=== PATIENT | male | born 1990 | race Two or more races ===

== ENCOUNTER 2017-08-16 02:00 | Emergency (ER) | payer MEDICAID, OTHER ==
[~2017-08-16] VITALS: Ht 180.3 cm; Wt 86.2 kg
[2017-08-16 02:29] VITALS: BP 145/96
== END 2017-08-16 05:47 | disposition home or self-care (01) ==
LOC: ER 02:00
DX: S90.465A Insect bite (nonvenomous), left lesser toe(s), initial encounter (principal); W57.XXXA Bitten or stung by nonvenomous insect and other nonvenomous arthropods, initial encounter; Y93.89 Activity, other specified; Y92.89 Other specified places as the place of occurrence of the external cause; Y99.8 Other external cause status

== ENCOUNTER 2019-02-23 05:47 | Emergency (ER) | payer MEDICAID ==
[~2019-02-23] VITALS: Ht 180.3 cm; Wt 86.2 kg
[2019-02-23 06:47] VITALS: BP 121/79
[2019-02-23 07:16] LABS: Urine Bacteria NONE SEEN /hpf (None Seen); Urine Blood Negative /uL (Negative); Urine Specific Gravity 1.016 (1.001-1.035); Urine WBC 2 /hpf (0 - 3)
[2019-02-23] MEDS ORDERED: cefTRIAXone SODIUM 250 MG VL IM ONE (07:30)
[2019-02-23] MEDS ORDERED: AZITHROMYCIN 250 MG TAB PO ONE (07:30)
== END 2019-02-23 07:48 | disposition home or self-care (01) ==
LOC: ER 05:47
DX: A64 Unspecified sexually transmitted disease (principal); F41.9 Anxiety disorder, unspecified; F15.10 Other stimulant abuse, uncomplicated
CPT/HCPCS: 81001; 96372; 99283; J0696

== ENCOUNTER 2021-04-08 20:56 | Emergency (ER) | payer MEDICAID ==
[~2021-04-08] VITALS: Ht 180.3 cm; Wt 90.7 kg
[2021-04-08] MEDS ORDERED: IBUP800T27 PO (23:15)
[2021-04-08] MEDS ORDERED: ACET-1304 PO (23:15)
[2021-04-08 23:19] VITALS: BP 121/78
== END 2021-04-09 03:31 | disposition home or self-care (01) ==
LOC: ER 21:01
DX: S62.334A Displaced fracture of neck of fourth metacarpal bone, right hand, initial encounter for closed fracture (principal); Y93.89 Activity, other specified; Y92.89 Other specified places as the place of occurrence of the external cause; Y99.8 Other external cause status
CPT/HCPCS: 29125; 73130

== ENCOUNTER 2021-08-21 22:51 | Emergency (ER) | payer MEDICAID ==
[~2021-08-21] VITALS: Ht 180.3 cm; Wt 86.2 kg
[~2021-08-21 22:51] MED LIST: ACET-1304 PO; IBUP800T27 PO
[2021-08-22 00:18] LABS: Basophils # (auto) 0 10 ^3/uL (0-0.2); Basophils % (auto) 0.4 % (0.0-2.0); Eosinophils # (auto) 0.2 10 ^3/uL (0-0.8); Eosinophils % (auto) 1.8 % (0.0-7.0); Hematocrit 40.9 % (41.0-53.0); Hemoglobin 14.5 g/dL (13.5-17.5); Lymphocytes # (auto) 2.9 10 ^3/uL (0.4-5.4); Lymphocytes % (auto) 31.4 % (10.0-50.0); Mean Corpuscular Hemoglobin 30.3 pg (28.0-32.0); Mean Corpuscular Hgb Conc. 35.5 g/dL (32.0-36.0); Mean Corpuscular Volume 85.6 fL (80.0-100.0); Monocytes # (auto) 0.5 10 ^3/uL (0-1.3); Monocytes % (auto) 5.8 % (0.0-12.0); Neutrophils # (auto) 5.7 10 ^3/uL (1.6-8.6); Neutrophils % (auto) 60.6 % (37.0-80.0); Nucleated Red Blood Cells % 0.1 %; Red Blood Cells 4.78 10^6/uL (4.5-5.90); Red Cell Distribution Width 13.7 % (11.8-14.3); White Blood Cell 9.3 10^3/uL (4.4-10.8)
[2021-08-22 00:43] LABS: Albumin 3.6 g/dL (3.4-5.0); Calcium 8.4 mg/dL (8.5-10.1); Potassium 3.7 mmol/L (3.5-5.1)
[2021-08-22 00:45] LABS: BUN/Creatinine Ratio 14.1
[2021-08-22 00:47] LABS: Bilirubin, Total 0.5 mg/dL (0.2-1.0); Total Protein 6.9 g/dL (6.4-8.2)
[2021-08-22] MEDS ORDERED: IBUPROFEN 800 MG TAB PO ONE (02:45)
[2021-08-22] MEDS ORDERED: ceFAZolin IM 1GM/2.5ML STERILE WATER IM ONE (03:45)
[2021-08-22] MEDS ORDERED: TETANUS-DIPTH-ACEL PERTUSSIS 0.5ML SYR Tdap IM ONE (03:45)
[2021-08-22] MEDS ORDERED: CEPH-509 PO (04:18)
[2021-08-22] MEDS ORDERED: SULF400T11 PO (04:18)
[2021-08-22] MEDS ORDERED: SULFAMETHOX W/TRIMETH(800/160MG) DS TAB PO ONE (04:30)
[2021-08-22] MEDS ORDERED: CEPHALEXIN 250 MG CAP PO ONE (04:30)
[2021-08-22 04:50] VITALS: BP 125/81
== END 2021-08-22 04:53 | disposition home or self-care (01) ==
LOC: ER 22:51
DX: R22.32 Localized swelling, mass and lump, left upper limb (principal); F15.10 Other stimulant abuse, uncomplicated
CPT/HCPCS: 36415; 73140; 80053; 83605; 85025; 87040; 90471; 90715; 99284; J0690

== ENCOUNTER 2022-08-27 10:21 | Emergency (ER) | payer MEDICAID ==
[~2022-08-27] VITALS: Ht 180.3 cm; Wt 91.0 kg
[~2022-08-27 10:21] MED LIST changes: +CEPH-509 PO; +IBUP-1456 PO; -IBUP800T27 PO; +SULF400T11 PO
[2022-08-27 11:31] VITALS: BP 147/87
[2022-08-27 11:53] LABS: Urine Amorphous Crystal FEW /hpf (None Seen); Urine Bacteria NONE SEEN /hpf (None Seen); Urine Blood Negative /uL (Negative); Urine Mucus FEW (None Seen); Urine Specific Gravity 1.015 (1.001-1.035); Urine WBC 1 /hpf (0 - 3)
[2022-08-27] MEDS ORDERED: HYDROcodone-ACET 5/325MG TAB PO ONE (12:30)
== END 2022-08-27 12:37 | disposition home or self-care (01) ==
LOC: ER 10:21
DX: S46.912A Strain of unspecified muscle, fascia and tendon at shoulder and upper arm level, left arm, initial encounter (principal); W18.31XA Fall on same level due to stepping on an object, initial encounter; Y93.89 Activity, other specified; Y92.89 Other specified places as the place of occurrence of the external cause; Y99.8 Other external cause status
CPT/HCPCS: 73030; 81001

== ENCOUNTER 2022-11-12 16:51 | Emergency (ER) | payer MEDICAID ==
[~2022-11-12] VITALS: Ht 180.3 cm; Wt 83.4 kg
[2022-11-12 17:35] LABS: Urine Bacteria NONE SEEN /hpf (None Seen); Urine Blood Negative /uL (Negative); Urine Clarity Clear (Clear); Urine Color Yellow (Yellow); Urine Protein, UAD Negative (Negative); Urine Specific Gravity 1.021 (1.001-1.035); Urine Urobilinogen Normal (Negative); Urine WBC 4 /hpf (0 - 3); Urine pH 6.5 (5.0-8.0)
[2022-11-12] MEDS ORDERED: AZITHROMYCIN 250 MG TAB PO ONE (18:30)
[2022-11-12] MEDS ORDERED: cefTRIAXone SODIUM 250 MG VL IM ONE (18:30)
[2022-11-12] MEDS ORDERED: LIDOCAINE 1% HCL (LOCAL ANESTH.) INJ 20ML MDV ONE (18:46)
[2022-11-12 19:21] VITALS: BP 124/86; PULSE 110; RESP 18; TEMP 98.5; O2SAT 96
[2022-11-14 07:06] LABS: RPR Non Reactive (Non Reactive)
== END 2022-11-12 19:24 | disposition home or self-care (01) ==
LOC: ER 16:51
DX: R36.9 Urethral discharge, unspecified (principal); Z79.899 Other long term (current) drug therapy; Z79.1 Long term (current) use of non-steroidal anti-inflammatories (NSAID)
CPT/HCPCS: 81001; 86592; 87491; 87591; 96372; 99283; J0696; J2001

== ENCOUNTER 2023-05-20 15:25 | Emergency (ER) | payer MEDICAID ==
[~2023-05-20] VITALS: Ht 180.3 cm; Wt 84.1 kg
[2023-05-20 15:43] VITALS: BP 138/91; PULSE 107; RESP 18; TEMP 98.4; O2SAT 97
[2023-05-20] MEDS ORDERED: CIPR0.3S67 OP (16:06)
== END 2023-05-20 16:21 | disposition home or self-care (01) ==
LOC: ER 15:25
DX: H10.31 Unspecified acute conjunctivitis, right eye (principal); Z79.1 Long term (current) use of non-steroidal anti-inflammatories (NSAID); Z79.2 Long term (current) use of antibiotics; Z79.899 Other long term (current) drug therapy

== ENCOUNTER 2023-06-01 15:59 | Emergency (ER) | payer MEDICAID ==
[~2023-06-01] VITALS: Ht 180.3 cm; Wt 81.5 kg
[~2023-06-01 15:59] MED LIST changes: +CIPR0.3S67 OP
[2023-06-01 16:47] LABS: Basophils # (auto) 0 10 ^3/uL (0-0.2); Basophils % (auto) 0.4 % (0.0-2.0); Eosinophils # (auto) 0.1 10 ^3/uL (0-0.8); Eosinophils % (auto) 1.4 % (0.0-7.0); Hemoglobin 15.9 g/dL (13.5-17.5); Lymphocytes % (auto) 42.3 % (10.0-50.0); Mean Corpuscular Hemoglobin 29.7 pg (28.0-32.0); Mean Corpuscular Hgb Conc. 33.8 g/dL (32.0-36.0); Mean Corpuscular Volume 87.7 fL (80.0-100.0); Monocytes # (auto) 0.5 10 ^3/uL (0-1.3); Monocytes % (auto) 7.5 % (0.0-12.0); Neutrophils # (auto) 3.4 10 ^3/uL (1.6-8.6); Neutrophils % (auto) 48.4 % (37.0-80.0); Nucleated Red Blood Cells % 0.2 %; Red Blood Cells 5.36 10^6/uL (4.5-5.90); Red Cell Distribution Width 13.5 % (11.8-14.3); White Blood Cell 7.1 10^3/uL (4.4-10.8)
[2023-06-01 17:02] LABS: Alanine Aminotransferase 20 U/L (7-40); Albumin 4.5 g/dL (3.2-4.8); Alkaline Phosphatase 27 U/L (46-116); Anion Gap 2 (5-15); Aspartate Aminotransferase 12 U/L (13-40); BUN/Creatinine Ratio 12.6 (10.0-20.0); Blood Urea Nitrogen 11 mg/dL (9-23); Calcium 10.2 mg/dL (8.7-10.4); Carbon Dioxide 32 mmol/L (20-30); Chloride 106 mmol/L (98-107); Glucose 93 mg/dL (74-106); Magnesium 1.9 mg/dL (1.6-2.6); Potassium 4.1 mmol/L (3.5-5.1); Sodium 140 mmol/L (136-145)
[2023-06-01 17:03] LABS: Bilirubin, Total 2.5 mg/dL (0.2-1.0); Total Protein 7.1 g/dL (5.7-8.2)
[2023-06-01 20:03] LABS: Amphetamine Screen, Urine Pos (NEGATIVE); Barbiturate Scree,Urine Neg (NEGATIVE); Benzodiazephine Screen, Urine Neg (NEGATIVE); Cocaine Screen, Urine Neg (NEGATIVE); Opiate Scree,Urine Neg (NEGATIVE); Phencyclidine Screen, Urine Neg (NEGATIVE)
[2023-06-01 20:04] LABS: Cannabinoid Screen, Urine Pos (NEGATIVE)
[2023-06-01 20:10] LABS: Urine Amorphous Crystal FEW /hpf (None Seen); Urine Bacteria NONE SEEN /hpf (None Seen); Urine Blood Negative /uL (Negative); Urine Clarity CLOUDY (Clear); Urine Color Yellow (Yellow); Urine Mucus FEW (None Seen); Urine Protein, UAD TRACE (Negative); Urine Specific Gravity 1.026 (1.001-1.035); Urine Sperm PRESENT /hpf (None Seen); Urine WBC 12 /hpf (0 - 3); Urine WBC Clumps PRESENT /hpf (None Seen)
[2023-06-01] MEDS ORDERED: CEPH500C PO (21:12)
[2023-06-01 21:47] VITALS: BP 130/85; PULSE 78; RESP 18; TEMP 98.2; O2SAT 98
== END 2023-06-01 21:47 | disposition home or self-care (01) ==
LOC: ER 15:59
DX: S60.410A Abrasion of right index finger, initial encounter (principal); F15.10 Other stimulant abuse, uncomplicated; R07.89 Other chest pain; Z79.1 Long term (current) use of non-steroidal anti-inflammatories (NSAID); Z79.2 Long term (current) use of antibiotics; Z79.899 Other long term (current) drug therapy; W26.8XXA Contact with other sharp object(s), not elsewhere classified, initial encounter; Y93.89 Activity, other specified; Y92.89 Other specified places as the place of occurrence of the external cause; Y99.8 Other external cause status
CPT/HCPCS: 36415; 71045; 80053; 80307; 81001; 83605; 83735; 84484; 85025; 93005